=== PATIENT | female | born 1965 | race Hispanic/Latino ===

== ENCOUNTER 2018-03-29 10:26 | Emergency (ER) | payer OTHER | END 2018-03-29 12:43 | disposition home or self-care (01) | LOC: ERS 10:26 | DX: S40.861A Insect bite (nonvenomous) of right upper arm, initial encounter (principal); F31.9 Bipolar disorder, unspecified; F17.210 Nicotine dependence, cigarettes, uncomplicated; E78.5 Hyperlipidemia, unspecified; G40.909 Epilepsy, unspecified, not intractable, without status epilepticus; Z79.01 Long term (current) use of anticoagulants; Z71.6 Tobacco abuse counseling; W57.XXXA Bitten or stung by nonvenomous insect and other nonvenomous arthropods, initial encounter | CPT/HCPCS: 99406 ==

== ENCOUNTER 2018-06-29 10:22 | Emergency (ER) | payer OTHER ==
--- NOTE | 2018-06-29 12:34 | RAD ---
PA AND LATERAL CHEST: History: Cough. FINDINGS: Heart size and mediastinum are within normal limits. The lungs appear clear of infiltrates. No signif icant bony findings. IMPRESSION: No active intrathoracic disease. POS: [facility]
== END 2018-06-29 12:30 | disposition home or self-care (01) ==
LOC: ERS 10:22
DX: J32.9 Chronic sinusitis, unspecified (principal); F17.210 Nicotine dependence, cigarettes, uncomplicated; F31.9 Bipolar disorder, unspecified; Z71.6 Tobacco abuse counseling; Z79.84 Long term (current) use of oral hypoglycemic drugs; Z79.899 Other long term (current) drug therapy
CPT/HCPCS: 71046; 93005; 99406

== ENCOUNTER 2018-09-07 13:40 | Outpatient (CLI) | payer OTHER ==
--- NOTE | 2018-09-07 15:43 | BD ---
Exam: DEXA Bone Density 09/07/18 HISTORY: Postmenopausal screening for osteoporosis. FINDINGS: Lumbar Spine: BMD (g/cm2) T-Score Z-Score L1 0.723 -2.1 -1.3 L2 0.770 -2.3 -1.4 L3 0.783 -2.7 -1.8 L4 0.794 -2.4 -1.5 L1-L4 0.777 -2.5 -1.5 Femoral Neck: 0.567 -2.5 -1.6 Total Femur: 0.931 -0.1 -0.5 Impression: Osteoporosis. POS: [facility]
== END 2018-09-07 13:41 | disposition home or self-care (01) ==
LOC: BICMAMMO 13:40
PROVIDERS: ATTEND Specialist
DX: Z12.31 Encounter for screening mammogram for malignant neoplasm of breast (principal); M81.0 Age-related osteoporosis without current pathological fracture; Z80.3 Family history of malignant neoplasm of breast; Z85.43 Personal history of malignant neoplasm of ovary
CPT/HCPCS: 77067; 77080

== ENCOUNTER 2018-12-09 11:13 | Emergency (ER) | payer OTHER ==
[2018-12-09] MEDS ORDERED: Azithromycin 250 MG TAB ONE (12:37)
[2018-12-09 12:38] LABS: Bilirubin Negative (Negative); Blood, Urine Trace (Negative); Clarity CLEAR (Clear); Glucose, Urine (Dipstick) Negative (Negative); Leukocyte Negative (Negative); Nitrite Negative (Negative); Pregnancy Test - Urine (BHCG) Negative (Negative); Protein, Urine (Dipstick) Negative (Neg-Trace); Specific Gravity 1.017 (1.002-1.036); Specific Gravity, Urine 1.017 (1.002-1.036); Urobilinogen 0.2 mg/dL (0.2-1.0)
[2018-12-09 12:39] LABS: Pregu Control Background? CLEAR/WHITE (CLR/WHITE); Pregu Control Bar Appear? YES (CONTROL BAR)
[2018-12-09 12:40] LABS: Bacteria/HPF Rare-Few HPF (None Seen); Hyaline Casts/LPF 0-3 HYALINE CAST LPF (0-3 Hyaline); Pathc Cast-AUWi Flag 0.27 (0-2.49); RBC/HPF 0-3 HPF (0-3); Squamous Epithelial 0-3 HPF (0-3); WBC/HPF 0-3 HPF (0-3)
== END 2018-12-09 13:01 | disposition home or self-care (01) ==
LOC: ERS 11:13
DX: A60.04 Herpesviral vulvovaginitis (principal); N76.0 Acute vaginitis; E78.5 Hyperlipidemia, unspecified; G40.909 Epilepsy, unspecified, not intractable, without status epilepticus; F32.9 Major depressive disorder, single episode, unspecified; F17.210 Nicotine dependence, cigarettes, uncomplicated; Z79.899 Other long term (current) drug therapy
CPT/HCPCS: 81003; 81015; 81025; 87086; 87480; 87510; 87660; 99283

== ENCOUNTER 2019-09-10 14:21 | Outpatient (CLI) | payer OTHER ==
--- NOTE | 2019-09-10 15:38 | MMO ---
Bilateral MAMMO Bilat Screen DDI. CLINICAL HISTORY: Patient is 53 years old and is seen for screening. The patient has the following family history of breast cancer: mother, at age 45, malignant (generic). The patient has a history of uterine cancer. VIEWS: The views performed were: bilateral craniocaudal and bilateral mediolateral oblique. FILMS COMPARED: The present examination has been compared to prior imaging studies performed at [facility] on 10/03/2013, 10/16/2014, 03/05/2016 and 05/11/2017. This study has been interpreted with the assistance of computer-aided detection. MAMMOGRAM FINDINGS: There are scattered fibroglandular densities. There are no suspicious masses, suspicious calcifications, or new areas of architectural distortion. IMPRESSION: THERE IS NO MAMMOGRAPHIC EVIDENCE OF MALIGNANCY. A ROUTINE FOLLOW-UP MAMMOGRAM IN 1 YEAR IS RECOMMENDED. ACR BI-RADS Category 1 - Negative MAMMOGRAPHY NOTE: 1. A negative mammogram report should not delay a biopsy if a dominant of clinically suspicious mass is present. 2. Approximately 10% to 15% of breast cancers are not detected by mammography. 3. Adenosis and dense breasts may obscure an underlying neoplasm. Reported by: JOYCE VIDAL MD Electonically Signed: [id number]
--- NOTE | 2019-09-10 15:58 | BD ---
BONE DENSITOMETRY: Date: 09/10/19 HISTORY: 53-year-old female for postmenopausal osteoporosis screening. FINDINGS: Lumbar Spine: BMD (g/cm2) L1 0.766 T-Score: -2.0 L2 0.707 T-Score: -2.9 L3 0.744 T-Score: -3.1 L4 0.766 T-Score: -2.7 Total 0.747 T-Score: -2.7 Total density 09/07/18: 0.777 Left Femoral Neck: 0.576 T-Score: -2.5 Total Femur: 0.832 T-Score: -0.9 Total density 09/07/18: 0.931 IMPRESSION: Bone mineral density of the lumbar spine and femoral neck both indicate osteoporosis. POS: [facility]
== END 2019-09-10 14:22 | disposition home or self-care (01) ==
LOC: BICMAMMO 14:21
PROVIDERS: ATTEND Specialist
DX: Z12.31 Encounter for screening mammogram for malignant neoplasm of breast (principal); M81.0 Age-related osteoporosis without current pathological fracture; Z80.3 Family history of malignant neoplasm of breast; Z85.42 Personal history of malignant neoplasm of other parts of uterus
CPT/HCPCS: 77067; 77080

== ENCOUNTER 2019-12-01 12:24 | Emergency (ER) | payer OTHER ==
[2019-12-01] MEDS ORDERED: methylPREDNISolone Sod Succ/PF 125 MG/2 ML VIAL ONE (13:29)
[2019-12-01] MEDS ORDERED: Famotidine 20 MG TAB ONE (13:29)
[2019-12-01] MEDS ORDERED: Dexamethasone 10 MG/ML VIAL ONE (13:50)
== END 2019-12-01 14:09 | disposition home or self-care (01) ==
LOC: ERS 12:24
DX: T78.1XXA Other adverse food reactions, not elsewhere classified, initial encounter (principal); L50.0 Allergic urticaria; E78.5 Hyperlipidemia, unspecified; E78.00 Pure hypercholesterolemia, unspecified; G40.909 Epilepsy, unspecified, not intractable, without status epilepticus; F31.9 Bipolar disorder, unspecified; F17.210 Nicotine dependence, cigarettes, uncomplicated; Z79.899 Other long term (current) drug therapy
CPT/HCPCS: 99283; J1100; J2930

== ENCOUNTER 2021-04-24 11:18 | Outpatient (CLI) | payer MEDICAID | END 2021-04-24 11:19 | disposition home or self-care (01) | LOC: BICMAMMO 11:18 | PROVIDERS: ATTEND Specialist | DX: Z12.31 Encounter for screening mammogram for malignant neoplasm of breast (principal); Z85.42 Personal history of malignant neoplasm of other parts of uterus; Z80.3 Family history of malignant neoplasm of breast | CPT/HCPCS: 77067 ==

== ENCOUNTER 2022-02-04 09:56 | Outpatient (CLI) | payer OTHER | END 2022-02-04 09:57 | disposition home or self-care (01) | LOC: BICRAD 09:56 | PROVIDERS: ATTEND Specialist | DX: M25.551 Pain in right hip (principal); M16.11 Unilateral primary osteoarthritis, right hip; M25.851 Other specified joint disorders, right hip ==

== ENCOUNTER 2022-02-09 12:45 | Emergency (ER) | payer OTHER ==
[2022-02-09] MEDS ORDERED: Ketorolac Tromethamine 30 MG/ML VIAL ONE (13:41)
[2022-02-09] MEDS ORDERED: Cyclobenzaprine 10 MG TAB ONE (13:41)
== END 2022-02-09 16:21 | disposition home or self-care (01) ==
LOC: ERS 12:45
DX: M54.2 Cervicalgia (principal); M25.511 Pain in right shoulder; G40.909 Epilepsy, unspecified, not intractable, without status epilepticus; F17.210 Nicotine dependence, cigarettes, uncomplicated; V43.52XA Car driver injured in collision with other type car in traffic accident, initial encounter
CPT/HCPCS: 72125; 96372; J1885

== ENCOUNTER 2022-03-09 04:34 | Emergency (ER) | payer OTHER | END 2022-03-09 07:00 | disposition home or self-care (01) | LOC: ERS 04:34 | DX: M25.571 Pain in right ankle and joints of right foot (principal); G40.909 Epilepsy, unspecified, not intractable, without status epilepticus; F17.210 Nicotine dependence, cigarettes, uncomplicated; Z79.899 Other long term (current) drug therapy ==

== ENCOUNTER 2022-10-28 19:20 | Emergency (ER) | payer OTHER ==
[2022-10-28] MEDS ORDERED: Proparacaine 0.5% Opth 15 ML BOT ONE (19:43)
[2022-10-28] MEDS ORDERED: Fluorescein Opthalmic Strip ONE (19:43)
== END 2022-10-28 20:24 | disposition home or self-care (01) ==
LOC: ERS 19:20
DX: L01.00 Impetigo, unspecified (principal); F17.210 Nicotine dependence, cigarettes, uncomplicated
CPT/HCPCS: 99283

== ENCOUNTER 2022-12-25 08:08 | Emergency (ER) | payer OTHER ==
[2022-12-25] MEDS ORDERED: Lidocaine 1% MPF 2 ML VIAL ONE (08:33)
[2022-12-25] MEDS ORDERED: cefTRIAXone (ROCEPHIN) 500 MG VIAL ONE (08:33)
[2022-12-25 09:08] LABS: Bilirubin Negative (Negative); Blood, Urine 1+ (Negative); Glucose, Urine (Dipstick) Normal (Negative); Ketone, Urine Negative (Negative); Leukocyte 500 Leu/uL (Negative); Nitrite Negative (Negative); Protein, Urine (Dipstick) 20 mg/dL (Neg-Trace); Specific Gravity, Urine 1.027 (1.002-1.036); Squamous Epithelial 0-3 HPF (0-3); Urobilinogen Normal mg/dL (Less than 2); WBC/HPF Greater than 50 HPF (0-3); pH, Urine 5.5 (5.0-9.0)
[2022-12-25 09:10] LABS: Bacteria/HPF 2+ HPF (None Seen); Clarity Cloudy (Clear)
[2022-12-25 09:11] LABS: Pregnancy Test - Urine (BHCG) Negative (Negative); Pregu Control Background? CLEAR/WHITE (CLR/WHITE); Pregu Control Bar Appear? YES (CONTROL BAR); Specific Gravity 1.027 (1.002-1.036)
[2022-12-25 22:14] LABS: GC by PCR, Vaginal Swab Not Detected (NotDetected)
== END 2022-12-25 09:28 | disposition home or self-care (01) ==
LOC: ERS 08:08
DX: N73.9 Female pelvic inflammatory disease, unspecified (principal); N39.0 Urinary tract infection, site not specified; I10 Essential (primary) hypertension; F17.210 Nicotine dependence, cigarettes, uncomplicated
CPT/HCPCS: 81003; 81015; 81025; 87480; 87510; 87591; 87660; 96372; 99283; J0696